=== PATIENT | male | born 1980 | race Two or more races ===

== ENCOUNTER 2018-04-29 18:05 | Emergency (ER) | payer OTHER ==
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
== END 2018-04-29 22:17 | disposition home or self-care (01) ==
LOC: ER 18:05
DX: R20.2 Paresthesia of skin (principal); V43.52XA Car driver injured in collision with other type car in traffic accident, initial encounter; Y93.89 Activity, other specified; Y92.410 Unspecified street and highway as the place of occurrence of the external cause
CPT/HCPCS: 70450; 99283